=== PATIENT | male | born 1985 | race Caucasian/White ===

== ENCOUNTER 2023-05-13 01:13 | Emergency (ER) | payer SELFPAY ==
[~2023-05-13] VITALS: Ht 167.6 cm; Wt 63.5 kg
[2023-05-13 01:33] VITALS: BP 129/73; PULSE 106; RESP 20; TEMP 98.3; O2SAT 100
[2023-05-13] MEDS ORDERED: LIDOCAINE HCL 1% 20ML VIAL (Pyxis) INJ INFIL ONE (02:15)
[2023-05-13] MEDS ORDERED: TETANUS, DIPHTHERIA, PERTUSSIS VAC/PF 0.5ML (>10YR OLD) IM ONE (02:15)
== END 2023-05-13 03:30 | disposition home or self-care (01) ==
LOC: ER 01:13
DX: S01.01XA Laceration without foreign body of scalp, initial encounter (principal); X58.XXXA Exposure to other specified factors, initial encounter; Y93.89 Activity, other specified; Y92.89 Other specified places as the place of occurrence of the external cause; Y99.8 Other external cause status
CPT/HCPCS: 90715; 12002; 90471; 99283; Z7610 ×2; 99282

== ENCOUNTER 2023-05-24 15:34 | Emergency (ER) | payer SELFPAY ==
[~2023-05-24] VITALS: Ht 167.6 cm; Wt 64.0 kg
[2023-05-24 15:48] VITALS: BP 117/69; TEMP 98.8; O2SAT 99
[2023-05-24 15:58] VITALS: PULSE 87; RESP 16
== END 2023-05-24 17:04 | disposition home or self-care (01) ==
LOC: ER 15:34
DX: S01.01XD Laceration without foreign body of scalp, subsequent encounter (principal); X58.XXXD Exposure to other specified factors, subsequent encounter
CPT/HCPCS: 99281; Z7610